=== PATIENT | female | born 2000 | race Two or more races ===

== ENCOUNTER 2019-08-27 10:32 | Emergency (ER) | payer OTHER, MEDICAID ==
[~2019-08-27] VITALS: Ht 152.4 cm; Wt 54.4 kg
[2019-08-27 11:25] LABS: Basophils # (auto) 0 uL; Basophils % (auto) 0.3 % (0.0-2.0); Eosinophils # (auto) 0.1 uL; Eosinophils % (auto) 1.3 % (0.0-7.0); Hematocrit 44.1 % (36.0-46.0); Hemoglobin 15.3 g/dL (12.2-16.2); Lymphocytes # (auto) 1.4 uL; Lymphocytes % (auto) 23.6 % (10.0-50.0); Mean Corpuscular Hemoglobin 30.4 pg (28.0-32.0); Mean Corpuscular Hgb Conc. 34.6 g/dL (32.0-36.0); Mean Corpuscular Volume 87.8 fL (80.0-100.0); Monocytes # (auto) 0.5 uL; Neutrophils # (auto) 3.8 uL; Neutrophils % (auto) 66.8 % (37.0-80.0); Platelet Count (auto) 187 10^3/uL (140-450); Red Blood Cells 5.02 10^6/uL (4.0-5.20); Red Cell Distribution Width 12.9 % (11.8-14.3); White Blood Cell 5.7 10^3/uL (4.4-10.8)
[2019-08-27 11:37] LABS: Potassium 4.1 mmol/L (3.5-5.1)
[2019-08-27 11:46] LABS: Albumin 4.2 g/dL (3.4-5.0); BUN/Creatinine Ratio 14.3; Bilirubin, Total 0.4 mg/dL (0.2-1.0); Total Protein 7.4 g/dL (6.4-8.2)
[2019-08-27] MEDS ORDERED: ACETAMINOPHEN 325 MG TAB PO ONE (12:15)
[2019-08-27 12:57] VITALS: BP 122/71
== END 2019-08-27 13:07 | disposition home or self-care (01) ==
LOC: EDBD 10:32 → EDUNIT# 10:32 → ER 10:36
DX: R56.9 Unspecified convulsions (principal); R51 Headache
CPT/HCPCS: 36415; 70450; 80053; 85025